=== PATIENT | male | born 1955 | race Caucasian/White ===

== ENCOUNTER 2017-07-13 06:54 | Outpatient (CLI) | payer OTHER | END 2017-07-13 07:08 | disposition home or self-care (01) | LOC: LAB 06:54 | DX: Z83.3 Family history of diabetes mellitus (principal); Z82.49 Family history of ischemic heart disease and other diseases of the circulatory system; E03.9 Hypothyroidism, unspecified; E06.3 Autoimmune thyroiditis; E78.2 Mixed hyperlipidemia; R73.02 Impaired glucose tolerance (oral); I11.9 Hypertensive heart disease without heart failure ==

== ENCOUNTER 2017-10-27 07:11 | Outpatient (CLI) | payer OTHER | END 2017-10-27 07:20 | disposition home or self-care (01) | LOC: LAB 07:11 | DX: E03.8 Other specified hypothyroidism (principal); E06.3 Autoimmune thyroiditis; E78.2 Mixed hyperlipidemia; R73.02 Impaired glucose tolerance (oral); I11.9 Hypertensive heart disease without heart failure ==

== ENCOUNTER 2023-05-08 10:16 | Outpatient (CLI) | payer OTHER ==
[2023-05-08 11:35] LABS: HEMOGLOBIN 13.8 g/dL (13-16.00); MEAN CELL VOLUME 92.9 fL (80.0-100.00); MEAN CORPUSCULAR HEMOGLOBIN 31.2 pg (27.00-32.0); MEAN CORPUSCULAR HGB CONC 33.6 g/dl (32.0-36.0); PLATELET COUNT 149 K/uL (150-450); RED BLOOD COUNT 4.41 M/uL (4.00-6.00); RED CELL DISTRIBUTION WIDTH 13.9 % (11.5-14.5)
[2023-05-08 12:46] LABS: ALBUMIN 3.7 gm/dL (3.4-5.0); BILIRUBIN TOTAL 0.57 mg/dL (0.3-1.2); CALCIUM 9.3 mg/dL (8.5-10.1); CREATININE SERUM 0.81 mg/dL (0.70-1.30); GFR 94.76; GLOBULINA 3.5 G/DL (2.4-3.5); POTASSIUM 4.62 mEq/L (3.5-5.1); TOTAL PROTEIN 7.2 gm/dL (6.4-8.2)
== END 2023-05-08 10:26 | disposition home or self-care (01) ==
LOC: LAB 10:16
DX: K76.0 Fatty (change of) liver, not elsewhere classified (principal); D69.6 Thrombocytopenia, unspecified